=== PATIENT | male | born 1945 | race Asian ===

== ENCOUNTER 2023-02-04 13:32 | Observation (INO) | payer OTHER ==
[2023-02-04] MEDS ORDERED: NITROGLYCERIN 25MG/D5W 250ML 25 MG/250 ML ML IVPB SCH ×5 (14:00→17:25)
[2023-02-04] MEDS ORDERED: NITROGLYCERIN 25MG/D5W 250ML 25 MG/250 ML ML IVPB ONE (14:12)
[2023-02-04 14:27] LABS: BASO % 1.1 % (0-2.0); EOS % 1.2 % (0-4.5); HEMATOCRIT 43.4 % (35.4-49); HEMOGLOBIN 14.5 GM/dL (11.7-16.9); LYMPH % 22.1 % (8-40); MCH 29.8 pg (25.7-33.7); MCHC 33.4 g/dl (32.0-35.9); MEAN CELL VOLUME 89.3 fl (80-96); MEAN PLT VOLUME 9.6 fl (7.5-11.1); MONO % 6.6 % (3.8-10.2); PLATELET COUNT 270 10^3/uL (134-434); RBC 4.86 M/mm3 (4.00-5.60); RDW 14.5 % (11.9-15.9); WHITE BLOOD COUNT 7.7 K/mm3 (4.0-10.0)
[2023-02-04 14:41] LABS: INR 1.02 (0.83-1.09); PROTHROMBIN TIME (PATIENT) 11.8 SEC (9.7-13.0)
[2023-02-04 14:44] LABS: ACTIVATED PTT 30.1 SECONDS (25.2-36.5)
[2023-02-04 14:58] LABS: CHLORIDE 105 mmol/L (98-107); SODIUM 136 mmol/L (136-145)
[2023-02-04 15:00] LABS: CALCIUM 9.5 mg/dL (8.5-10.1); GLUCOSE,RANDOM 96 mg/dL (74-106)
[2023-02-04 15:01] LABS: ALBUMIN 3.9 g/dl (3.4-5.0); BLOOD UREA NITROGEN 18.1 mg/dL (7-18); CO2 23 mmol/L (21-32)
[2023-02-04 15:03] LABS: SGPT/ALT 33 U/L (13-61)
[2023-02-04 15:04] LABS: CREATININE 1.3 mg/dL (0.55-1.3); SGOT/AST 58 U/L (15-37)
[2023-02-04 15:05] LABS: BILIRUBIN,TOTAL 0.8 mg/dL (0.2-1); TOT PROT 7.8 g/dl (6.4-8.2)
[2023-02-04 15:06] LABS: ALK PHOS 72 U/L (45-117)
[2023-02-04 15:09] LABS: ANION GAP 8 MMOL/L (8-16); POTASSIUM 6.9 mmol/L (3.5-5.1)
[2023-02-04] MEDS ORDERED: hydrALAZINE HCL 50 MG TABLET (FP) PO ONE (15:42)
[2023-02-04] MEDS ORDERED: hydrALAZINE HCL 50 MG TABLET (FP) ONE (15:50)
[2023-02-04 17:10] LABS: POTASSIUM 4.1 mmol/L (3.5-5.1)
[2023-02-04] MEDS ORDERED: NITROGLYCERIN 2% OINTMENT - 1GM PACKET TD ONE ×2 (17:24→17:43)
[2023-02-04] MEDS ORDERED: CARVEDILOL 25 MG TABLET (FP) PO ONE (18:23)
[2023-02-04] MEDS ORDERED: LOSARTAN POTASSIUM 50 MG TABLET PO ONE (18:24)
[2023-02-04] MEDS ORDERED: CARVEDILOL 25 MG TABLET (FP) ONE ×2 (18:38→22:40)
[2023-02-04] MEDS ORDERED: LOSARTAN POTASSIUM 50 MG TABLET ONE (18:38)
[2023-02-04] MEDS ORDERED: ENOXAPARIN NA (PORCINE) 80 MG/0.8 ML DISP.SYRIN SQ SCH (21:15)
[2023-02-04] MEDS: ENOXAPARIN NA (PORCINE) 80 MG/0.8 ML DISP.SYRIN SQ SCH (21:30)
[2023-02-04] MEDS: ATORVASTATIN CA 20 MG TABLET (FP) PO SCH (22:34)
[2023-02-04] MEDS: CARVEDILOL 25 MG TABLET (FP) PO SCH (22:34)
[2023-02-04] MEDS ORDERED: ATORVASTATIN CA 20 MG TABLET (FP) ONE (22:40)
[2023-02-04] MEDS ORDERED: ENOXAPARIN NA (PORCINE) 60 MG/0.6 ML DISP.SYRIN SQ ONE (22:41)
[2023-02-04] MEDS: INSULIN SLIDING SCALE (NOVOLOG) 1 VIAL SQ SCH (23:04)
[2023-02-05 00:41] LABS: EPI CELLS 2 /uL (0-25.1); HYALINE CASTS 0 /uL (0-3.1); PH,URINE 6.5 (5.0-8.0); URINE APPEARANCE CLEAR; URINE BACTERIA 71 /uL (0-1359); URINE BILIRUBIN NEGATIVE (NEGATIVE); URINE COLOR YELLOW; URINE GLUCOSE (UA) 3+ (NEGATIVE); URINE KETONE NEGATIVE (NEGATIVE); URINE LEUK ESTERASE NEGATIVE (NEGATIVE); URINE NITRITE NEGATIVE (NEGATIVE); URINE PROTEIN 1+ (NEGATIVE); URINE RBC 9 /uL (0-23.9); URINE UROBILINOGEN 0.2 mg/dL (0.2-1.0); URINE WBC 6 /uL (0-25.8)
[2023-02-05] MEDS: ENOXAPARIN NA (PORCINE) 80 MG/0.8 ML DISP.SYRIN SQ SCH ×3 (03:37→22:23)
[2023-02-05] MEDS: INSULIN SLIDING SCALE (NOVOLOG) 1 VIAL SQ SCH ×3 (06:12→16:40)
[2023-02-05 08:16] LABS: HEMATOCRIT 49.7 % (35.4-49); MCH 29.4 pg (25.7-33.7); MCHC 32.2 g/dl (32.0-35.9); MEAN CELL VOLUME 91.4 fl (80-96); MEAN PLT VOLUME 10.3 fl (7.5-11.1); PLATELET COUNT 214 10^3/uL (134-434); RBC 5.44 M/mm3 (4.00-5.60); RDW 14.5 % (11.9-15.9); WHITE BLOOD COUNT 7.5 K/mm3 (4.0-10.0)
[2023-02-05 08:23] LABS: POTASSIUM 4.1 mmol/L (3.5-5.1)
[2023-02-05 08:28] LABS: ALBUMIN 4.1 g/dl (3.4-5.0); BLOOD UREA NITROGEN 16.4 mg/dL (7-18); CALCIUM 9.9 mg/dL (8.5-10.1)
[2023-02-05 08:31] LABS: CREATININE 1.2 mg/dL (0.55-1.3)
[2023-02-05 08:33] LABS: TOT PROT 7.9 g/dl (6.4-8.2)
[2023-02-05] MEDS ORDERED: ISOSORBIDE MONONITRATE 30 MG TAB.SR.24H (FP) PO SCH (10:00)
[2023-02-05] MEDS ORDERED: ENOXAPARIN NA (PORCINE) 40 MG/0.4 ML DISP.SYRIN SQ SCH (10:00)
[2023-02-05] MEDS ORDERED: ASPIRIN 81 MG CHEWABLE TABLETS PO SCH (10:00)
[2023-02-05] MEDS ORDERED: LOSARTAN POTASSIUM 25 MG TABLET PO SCH ×2 (10:00→17:43)
[2023-02-05] MEDS ORDERED: HYDROCHLOROTHIAZIDE 12.5 MG CAPSULE (FP) PO SCH (10:00)
[2023-02-05] MEDS ORDERED: CARVEDILOL 25 MG TABLET (FP) PO SCH (10:00)
[2023-02-05] MEDS: ASPIRIN COATED 81 MG TABLET.EC PO SCH (10:59)
[2023-02-05] MEDS: CARVEDILOL 25 MG TABLET (FP) PO SCH ×2 (10:59→22:29)
[2023-02-05] MEDS: FAMOTIDINE 40 MG TABLET PO SCH (11:00)
[2023-02-05 12:37] VITALS: RESP 18
[2023-02-05] MEDS ORDERED: ATORVASTATIN CA 20 MG TABLET (FP) PO SCH (22:00)
[2023-02-05] MEDS: ATORVASTATIN CA 20 MG TABLET (FP) PO SCH (22:24)
[2023-02-06] MEDS: INSULIN SLIDING SCALE (NOVOLOG) 1 VIAL SQ SCH ×3 (00:08→11:10)
[2023-02-06 05:28] VITALS: TEMP 97.5
[2023-02-06 06:12] VITALS: BP 144/79; PULSE 59
[2023-02-06 08:28] LABS: EOS % 1.7 % (0-4.5); HEMATOCRIT 48.3 % (35.4-49); HEMOGLOBIN 15.7 GM/dL (11.7-16.9); LYMPH % 23.9 % (8-40); MCH 29.4 pg (25.7-33.7); MCHC 32.5 g/dl (32.0-35.9); MEAN CELL VOLUME 90.4 fl (80-96); MEAN PLT VOLUME 9.5 fl (7.5-11.1); MONO % 6.9 % (3.8-10.2); NEUT % 66.5 % (42.8-82.8); PLATELET COUNT 236 10^3/uL (134-434); RBC 5.34 M/mm3 (4.00-5.60); RDW 14.3 % (11.9-15.9); WHITE BLOOD COUNT 7.5 K/mm3 (4.0-10.0)
[2023-02-06 08:44] LABS: CHLORIDE 100 mmol/L (98-107); SODIUM 138 mmol/L (136-145)
[2023-02-06 08:51] LABS: ANION GAP 11 MMOL/L (8-16); BLOOD UREA NITROGEN 27.2 mg/dL (7-18); CO2 26 mmol/L (21-32)
[2023-02-06 08:52] LABS: ALBUMIN 4.2 g/dl (3.4-5.0)
[2023-02-06 08:55] LABS: CALCIUM 9.8 mg/dL (8.5-10.1); CREATININE 1.3 mg/dL (0.55-1.3); GLUCOSE,RANDOM 106 mg/dL (74-106); SGOT/AST 21 U/L (15-37); SGPT/ALT 36 U/L (13-61)
[2023-02-06 08:57] LABS: ALK PHOS 70 U/L (45-117)
[2023-02-06 09:01] LABS: BILIRUBIN,TOTAL 0.9 mg/dL (0.2-1)
[2023-02-06] MEDS ORDERED: ISOSORBIDE MONONITRATE 60 MG TAB.SR.24H (FP) PO SCH (10:00)
[2023-02-06] MEDS: ASPIRIN COATED 81 MG TABLET.EC PO SCH (10:18)
[2023-02-06] MEDS: ENOXAPARIN NA (PORCINE) 80 MG/0.8 ML DISP.SYRIN SQ SCH (10:18)
[2023-02-06] MEDS: CARVEDILOL 25 MG TABLET (FP) PO SCH (10:18)
[2023-02-06] MEDS: FAMOTIDINE 40 MG TABLET PO SCH (10:19)
== END 2023-02-06 15:04 | disposition home or self-care (01) ==
LOC: JER 13:32 → INTOOBSV 18:26 → UNDOADMOB 18:26 → JERBED 18:26 → J4W 02-05 00:33 → JERBED 02-05 00:33 → J4W 02-06 09:02 → JERBED 02-06 09:02
PROVIDERS: ADMIT Internal Medicine; ATTEND Internal Medicine
PROC: 3E023GC Introduction of Other Therapeutic Substance into Muscle, Percutaneous Approach (ICD-10-PCS; principal; 2023-02-06)
PROC: 3E033GC Introduction of Other Therapeutic Substance into Peripheral Vein, Percutaneous Approach (ICD-10-PCS; 2023-02-06)
DX: I16.1 Hypertensive emergency (principal); R07.9 Chest pain, unspecified; E11.9 Type 2 diabetes mellitus without complications; E78.5 Hyperlipidemia, unspecified; I25.10 Atherosclerotic heart disease of native coronary artery without angina pectoris; I11.9 Hypertensive heart disease without heart failure; Z95.1 Presence of aortocoronary bypass graft
CPT/HCPCS: 36415; 71045-TC-FY; 80053; 80061; 81003; 82550; 82553; 82962; 83036; 84132; 84443; 84484; 85025; 85027; 85610; 85730; 93005; 93010; 93306-TC; 96365; 96366; 96372; 99285-25; G0378